=== PATIENT | female | born 2000 | race Two or more races ===

== ENCOUNTER 2025-04-27 13:48 | Outpatient (CLI) | payer OTHER | END 2025-04-27 13:56 | disposition home or self-care (01) | LOC: PRENATAL 13:48 | PROVIDERS: ATTEND Obstetrics & Gynecology Maternal & Fetal Medicine | DX: O44.00 Complete placenta previa NOS or without hemorrhage, unspecified trimester (principal); Z3A.26 26 weeks gestation of pregnancy ==

== ENCOUNTER 2025-07-01 14:18 | Outpatient (CLI) | payer OTHER | END 2025-07-01 14:21 | disposition home or self-care (01) | LOC: PRENATAL 14:18 | PROVIDERS: ATTEND Obstetrics & Gynecology Maternal & Fetal Medicine | DX: O26.849 Uterine size-date discrepancy, unspecified trimester (principal); O36.8130 Decreased fetal movements, third trimester, not applicable or unspecified; Z3A.35 35 weeks gestation of pregnancy ==